=== PATIENT | female | born 1995 | race Caucasian/White ===

== ENCOUNTER 2017-04-13 17:53 | Emergency (ER) | payer BC, OTHER ==
[2017-04-13 18:28] VITALS: TEMP 98.3
--- NOTE | 2017-04-13 18:57 | ED ---
Allergic Reaction HPI - General Chief complaint: Allergic Reaction Stated complaint: ALLERGIC REACTION 8 WEEKS Time Seen by Provider: 04/13/17 18:22 Source: patient, RN notes reviewed, old records reviewed Mode of arrival: ambulatory Limitations: no limitations - History of Present Illness Initial Comments: This is a 21 year old female approximately 7 weeks stating that she has had a hive like rash for the past 2 weeks, and has been to illustrator set and PCP with no answer to why she has this rash. Patient reports she has been taking oatmeal baths, benadryl, and hydropcortisone cream. Patient states that she has used this but the rash continues to spread. Pt states that it is very pruritic. No fever, chills, history of new contacts or exposure. - Related Data Previous Rx's Medication Instructions Recorded hydrOXYzine HCL [Atarax] 25 mg PO TID PRN #21 tab 04/13/17 Allergies Allergy/AdvReac Type Severity Reaction Status Date / Time No Known Allergies Allergy Verified 04/13/17 18:57 Review of Systems ROS Statement: Those systems with pertinent positive or pertinent negative responses have been documented in the HPI. ROS Other: All systems not noted in ROS Statement are negative. Past Medical History Past Medical History: No Reported History History of Any Multi-Drug Resistant Organisms: None Reported Past Surgical History: No Surgical Hx Reported Past Psychological History: No Psychological Hx Reported Smoking Status: Never smoker Past Alcohol Use History: None Reported Past Drug Use History: None Reported General Exam - General Exam Comments Initial Comments: Pleasant 21 year old male , no distress. Limitations: no limitations General appearance: alert, in no apparent distress Head exam: Present: atraumatic, normocephalic, normal inspection Eye exam: Present: normal appearance, PERRL, EOMI. Absent: scleral icterus, conjunctival injection, periorbital swelling ENT exam: Present: normal exam, mucous membranes moist Neck exam: Present: normal inspection. Absent: tenderness, meningismus, lymphadenopathy Respiratory exam: Present: normal lung sounds bilaterally. Absent: respiratory distress, wheezes, rales, rhonchi, stridor Cardiovascular Exam: Present: regular rate, normal rhythm, normal heart sounds. Absent: systolic murmur, diastolic murmur, rubs, gallop, clicks GI/Abdominal exam: Present: soft, normal bowel sounds. Absent: distended, tenderness, guarding, rebound, rigid Extremities exam: Present: normal inspection, full ROM, normal capillary refill. Absent: tenderness, pedal edema, joint swelling, calf tenderness Back exam: Present: normal inspection Neurological exam: Present: alert, oriented X3, CN II-XII intact Psychiatric exam: Present: normal affect, normal mood Skin exam: Present: warm, dry, intact, normal color, rash (erythematous papules over trunk, arms, and legs. No evidene of tongue swelling. ) Course Vital Signs 04/13/17 04/13/17 18:20 19:46 Temperature 98.3 F Pulse Rate 98 78 Respiratory 18 16 Rate Blood Pressure 139/75 132/73 O2 Sat by Pulse 98 Oximetry Medical Decision Making - Medical Decision Making his is a 21 year old female approximately 7 weeks stating that she has had a hive like rash for the past 2 weeks, and has been to [facility] and PCP with no answer to why she has this rash. Patient reports she has been taking oatmeal baths, benadryl, and hydropcortisone cream. PATIENT HAS significant erythematous papules and macules over arms, legs, chest, and back. Patient is scratching at it in the room. 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 Discussed folllow up with OBGYN, she has appt next week. Discharged with atarax, and discussed to take benadryl and avoid scratching. Disposition Clinical Impression: PUPP (pruritic urticarial papules and plaques of ) Disposition: HOME SELF-CARE Condition: Good Instructions: Pruritic Urticarial Papules and Plaques of (ED) Additional Instructions: Follow-up with your PATIENT CARE COORDINATOR. Return to the emergency department if any alarming signs or symptoms occur. Apply the steroid cream as well. Patient also should do cool baths as warm water will aggravate the itching. Prescriptions: hydrOXYzine HCL [Atarax] 25 mg PO TID PRN #21 tab PRN Reason: Itching Referrals: Sandeep Palacios MD [Primary Care Provider] - 1-2 days Time of Disposition: 18:56
[2017-04-13 19:47] VITALS: BP 132/73; PULSE 78; RESP 16
== END 2017-04-13 19:47 | disposition home or self-care (01) ==
LOC: EC 17:53
DX: O26.86 Pruritic urticarial papules and plaques of pregnancy (PUPPP) (principal); Z3A.08 8 weeks gestation of pregnancy
CPT/HCPCS: 99283

== ENCOUNTER → 2020-08-06 | Outpatient (CLI) | payer BC ==
--- NOTE | 2020-08-07 07:04 | US ---
EXAMINATION TYPE: US thyroid st tissue head/neck DATE OF EXAM: 08/06/2020 COMPARISON: NONE CLINICAL HISTORY: Patient has a sensation while swallowing . Foreign body sensation. GLAND SIZE: Right Lobe: 4.6 x 1.1 x 1.2 cm Overall Parenchyma: homogenous Left Lobe: 4.9 x 1.2 x 1.3 cm Overall Parenchyma: homogeneous Isthmus Thickness: 0.3 cm NODULES RIGHT: # of nodules measured on right: 0 LEFT: # of nodules measured on left: 0 ISTHMUS: # of nodules measured in the isthmus: 0 Bilateral neck scanned, no evidence of lymphadenopathy. Homogeneous normal-sized thyroid without suspicious nodule. IMPRESSION: Unremarkable study.
== END | disposition home or self-care (01) ==
LOC: RADUSWWP 12:56
PROVIDERS: ATTEND Nurse Practitioner Adult Health
DX: R44.8 Other symptoms and signs involving general sensations and perceptions (principal)
CPT/HCPCS: 76536

== ENCOUNTER → 2020-09-16 | Outpatient (CLI) | payer BC ==
--- NOTE | 2020-09-16 08:43 | US ---
EXAMINATION TYPE: US abdomen complete DATE OF EXAM: 09/16/2020 COMPARISON: NONE CLINICAL HISTORY: 25-year-old female R10.9 ABD PAIN. Intermittent abdomen pain and N/V x 1 year TECHNIQUE: Multiple sonographic images of the abdomen are obtained. FINDINGS: EXAM MEASUREMENTS: Liver Length: 15.1 cm Gallbladder Wall: 0.2 cm CBD: 0.3 cm Spleen: 12.3 cm Right Kidney: 12.9 x 4.8 x 4.8 cm Left Kidney: 12.4 x 5.9 x 5.3 cm Pancreas: visualized portions wnl, limited by overlying midline bowel gas Liver: wnl Gallbladder: wnl Evidence for sonographic Davidson's sign: no CBD: visualized portions wnl, limited by overlying bowel gas Spleen: wnl Right Kidney: wnl Left Kidney: wnl Upper IVC: wnl Abd Aorta: wnl IMPRESSION: Suboptimal visualization of the pancreas. Otherwise, unremarkable sonographic examination of the abdo men.
== END | disposition home or self-care (01) ==
LOC: RADUSWWP 06:59
PROVIDERS: ATTEND Family Medicine
DX: R10.9 Unspecified abdominal pain (principal)
CPT/HCPCS: 76700